=== PATIENT | female | born 1935 | race Caucasian/White ===

== ENCOUNTER 2020-11-15 15:24 | Emergency (ER) | payer MEDICARE, SELFPAY ==
[2020-11-15 15:25] VITALS: BP 167/97; PULSE 58; RESP 16; TEMP 36.6; O2SAT 98; BMI 30.7
--- NOTE | 2020-11-15 15:48 | CT_ITS ---
PROCEDURE: CT HEAD/BRAIN WO CON CLINICAL INDICATION: fall Head injury with headache/pain, contusion, abrasion or hematoma COMPARISON: No exams were available for comparison TECHNIQUE: Axial images obtained. All CT scans at the facility use one or more dose reduction, viz: automated exposure control, ma/kV adjustment per patient size (including targeted exams where dose is matched to indication, i.e. head), or iterative reconstruction technique. FINDINGS: There is prominent soft tissue swelling in the right parietal region of the scalp. Soft tissue air is also noted consistent with laceration. There is generalized atrophy with periventricular ischemic gliotic change. No midline shift or mass effect. No acute intracranial hemorrhage. No obvious calvarial fracture IMPRESSION: Right-sided scalp hematoma with laceration. No acute intracranial findings Dictated by: William Childers MD 11/15/2020 16:27 William Childers MD in [facility] 11/15/2020 16:27
--- NOTE | 2020-11-15 15:48 | CT_ITS ---
PROCEDURE: CT CERVICAL SPINE WO CON CLINICAL INDICATION: fall Posttraumatic pain COMPARISON: No exams were available for comparison TECHNIQUE: Axial images obtained with sagittal and coronal reformats. All CT scans at the facility use one or more dose reduction, viz: automated exposure control, ma/kV adjustment per patient size (including targeted exams where dose is matched to indication, i.e. head), or iterative reconstruction technique. Axial spiral CT scanning performed of the cervical spine beginning at the base of the skull and continuing to the upper T-spine. 3-D multiplanar reconstruction with 3-D manipulation of volumetric data set in image rendering was completed by the radiologist and/or technologist with the supervision of the radiologist on independent workstation. FINDINGS: Mild cervical curvature convex right. No fracture or dislocation. No lytic or blastic change. There is degenerative disc disease at C4-C5 and C5-C6. There is 2 mm anterolisthesis of C3 on C4. Lung apices are clear. IMPRESSION: No acute fracture Dictated by: William Childers MD 11/15/2020 16:25 William Childers MD in [facility] 11/15/2020 16:25
--- NOTE | 2020-11-15 15:58 | [facility].EDGENADL ---
ED Disposition Clinical Impression: Scalp laceration Qualifiers: Encounter type: initial encounter Qualified Code(s): S01.01XA - Laceration without foreign body of scalp, initial encounter Scalp hematoma Qualifiers: Encounter type: initial encounter Qualified Code(s): S00.03XA - Contusion of scalp, initial encounter Disposition: Home, Self-Care Condition on Discharge: Good Instructions: DI for Laceration Repair, DI for Hematoma (Bruise), How to Prevent Falls, DI for Closed Head Injury Additional Instructions: Keep head elevated for 24 hours. Sleep on several pillows tonight to keep your head above your heart. Apply ice pack 20 minutes 4 times a day for 1st 24 hrs. Keep the bandage on until tomorrow morning, you may then remove it and begin showering and shampooing her hair. Tylenol as needed for pain. Additional instructions for SCALP LACERATION: Clean the wound daily with soap and water. You may shower and shampoo your hair. Avoid submerging the wound. No swimming.. Apply a thin film of antibiotic ointment such as neosporin, polysporin, or triple antibiotic daily after showering. Be careful when combing or brushing hair so that you so not snag the sutures with a comb or brush. See your primary care physician or return to the [facility] in 7 days for suture removal. The [facility] is open 9AM to 9 PM, 7 days a week. Return if any signs of infection including increasing pain, pus drainage, swelling, redness, red streaks, or fever. Additional instructions for HEAD INJURY: See your physician as soon as possible for further evaluation. Return immediately if severe headache, vomiting, problems with vision or speech, numbness or weakness of the extremities, or severe neck pain. Referrals: PCP,No [Primary Care Provider] - - Critical Care Critical Care Time: No Attestation: On , the high probability of a clinically significant, sudden or life threatening deterioration of the following system(s) required my full and direct attention, intervention and personal management. The time I documented below is in addition to time spent performing reported procedures but includes the following listed in this critical care notation. Medical Decision Making - Timoteo Inquiry Pt receiving controlled substance: No Vital Signs: 11/15/20 15:25 11/15/20 16:33 Temperature 98 F Temperature Source Oral Pulse Rate [Right] 58 L 58 L Respiratory Rate 16 18 Blood Pressure [Right Arm] 167/97 H 180/75 H Blood Pressure Mean [Right Arm] 120 110 Blood Pressure Source [Right Arm] Automatic Cuff Blood Pressure Position [Right Arm] Sitting 02 Sat by Pulse Oximetry 98 96 Oxygen Delivery Method Room Air Orders (Tests/Meds): ED MEDICATIONS Discontinued Medications Generic Name Dose Route Start Last Admin Trade Name Freq PRN Reason Stop Dose Admin Tetanus/Diphtheria Toxoids 0.5 ml 11/15/20 16:55 11/15/20 17:05 Tetanus-Diphth Toxoid, Adult 0.5ml Syr IM 11/15/20 16:56 0.5 ml .ONCE ONE Administration - CT Data CT Scan: Head, C-Spine Time Received: 16:[address] Reviewed: Yes: I have viewed the radiologist's interpretation Findings Narrative: PROCEDURE: CT HEAD/BRAIN WO CON CLINICAL INDICATION: fall Head injury with headache/pain, contusion, abrasion or hematoma COMPARISON: No exams were available for comparison TECHNIQUE: Axial images obtained. All CT scans at the facility use one or more dose reduction, viz: automated exposure control, ma/kV adjustment per patient size (including targeted exams where dose is matched to indication, i.e. head), or iterative reconstruction technique. FINDINGS: There is prominent soft tissue swelling in the right parietal region of the scalp. Soft tissue air is also noted consistent with laceration. There is generalized atrophy with periventricular ischemic gliotic change. No midline shift or mass effect. No acute intr
[2020-11-15 16:33] VITALS: BP 180/75; PULSE 58; RESP 18; O2SAT 96
[2020-11-15 17:30] VITALS: BP 164/79; PULSE 56; RESP 20; O2SAT 96
[2020-11-15 17:45] VITALS: BP 180/75; PULSE 62; RESP 18; TEMP 36.6; O2SAT 96
== END 2020-11-15 17:45 | disposition home or self-care (01) ==
PROVIDERS: Emergency Provider Emergency Medicine
DX: S01.01XA Laceration without foreign body of scalp, initial encounter (principal); S00.03XA Contusion of scalp, initial encounter; W19.XXXA Unspecified fall, initial encounter
CPT/HCPCS: 12001; 70450; 72125; 90471; 90714; 99283